=== PATIENT | female | born 1965 | race Two or more races ===

== ENCOUNTER 2018-04-17 11:04 | Day surgery (SDC) | payer BC ==
[2018-04-17] MEDS ORDERED: DEXAMETHASONE SOD PHOSPHATE 4 MG INJ IV ONE (11:05)
[2018-04-17] MEDS ORDERED: DESFLURANE ANESTHESIA GAS 240 ML BOTTLE IH ONE (11:05)
[2018-04-17] MEDS ORDERED: CEFAZOLIN 1 G VIAL MC ONE (11:05)
[2018-04-17] MEDS ORDERED: KETOROLAC TROMETHAMINE 30 MG INJ IM ONE (11:05)
[2018-04-17] MEDS ORDERED: ONDANSETRON 4 MG/2 ML VIAL IV ONE (11:05)
[2018-04-17] MEDS ORDERED: IV LACTATED RINGERS SOLUTION 1,000 ML BAG IV ONE (11:05)
[2018-04-17] MEDS ORDERED: NEOSTIGMINE METHYLSULFATE 10 MG/10 ML VIAL IV ONE (11:05)
[2018-04-17] MEDS ORDERED: LIDOCAINE HCL 2% 20 ML VIAL MC ONE (11:05)
[2018-04-17] MEDS ORDERED: PROPOFOL 200 MG/20 ML BOTTLE IV ONE (11:05)
[2018-04-17] MEDS ORDERED: GLYCOPYRROLATE 0.2 MG/ML VIAL MC ONE (11:05)
[2018-04-17] MEDS ORDERED: CEFAZOLIN 50 ML IV ONE (11:15)
[2018-04-17] MEDS ORDERED: BUPIVACAINE 0.25% 30 ML VIAL ONE (11:51)
[2018-04-17 12:21] LABS: *URINE HCG, QUAL NEGATIVE (NEGATIVE)
[2018-04-17] MEDS ORDERED: MIDAZOLAM HCL 2 MG/2 ML VIAL ONE (13:00)
[2018-04-17] MEDS ORDERED: ROCURONIUM BROMIDE 50 MG/5 ML VIAL ONE (13:00)
[2018-04-17] MEDS ORDERED: HYDROMORPHONE 2 MG/1 ML DISP.SYRIN ONE (13:01)
[2018-04-17] MEDS ORDERED: FENTANYL CITRATE 100 MCG/2 ML AMPUL ONE (14:30)
[2018-04-17] MEDS ORDERED: HYDROCODONE/APAP 5-325MG TABLET ONE (15:15)
== END 2018-04-17 16:30 | disposition home or self-care (01) ==
LOC: DS 11:04
PROVIDERS: ATTEND Obstetrics & Gynecology
DX: N80.2 Endometriosis of fallopian tube (principal); E66.3 Overweight
CPT/HCPCS: 36415; 71045; 84703; 86900; 86901; 93005; A4649; A4663; J0690; J1100; J1170; J1885; J2250; J2405; J2710; J3010; J3490; J7120